=== PATIENT | male | born 1980 | race Caucasian/White ===

== ENCOUNTER 2019-06-18 20:28 | Emergency (ER) | payer OTHER ==
[~2019-06-18] VITALS: Ht 167.6 cm; Wt 68.0 kg
[2019-06-18 20:30] VITALS: BP_SYST 129
--- NOTE | 2019-06-18 20:32 | NUR ---
Patient to [facility] for evaluation. Side rails up.
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
--- NOTE | 2019-06-18 20:40 | NUR ---
ER Dr. genao at bedside examining patient.
[2019-06-18 21:00] VITALS: BP_SYST 126
--- NOTE | 2019-06-18 21:00 | NUR ---
Patient and officer given written and verbal discharge instructions and verbalizes understanding. ER MD Guo discussed with patient the results and treatment provided. Patient in stable condition. ID arm band removed. No Rx given. Patient educated on pain management and to follow up with PMD. Pain Scale 0/10 Opportunity for questions provided and answered. Medication side effect fact sheet provided.
== END 2019-06-18 21:00 ==
LOC: SED 20:28
DX: F10.129 Alcohol abuse with intoxication, unspecified (principal); Y90.9 Presence of alcohol in blood, level not specified; V49.40XA Driver injured in collision with unspecified motor vehicles in traffic accident, initial encounter; Y93.89 Activity, other specified; Y92.89 Other specified places as the place of occurrence of the external cause; Y99.8 Other external cause status
CPT/HCPCS: 99283